=== PATIENT | male | born 1995 | race Caucasian/White ===

== ENCOUNTER 2019-05-18 18:13 | Emergency (ER) | payer OTHER, SELFPAY ==
[~2019-05-18] VITALS: Ht 170.2 cm; Wt 78.2 kg
[2019-05-18 20:34] LABS: CHLAMYDIA DNA AMPLIFICATION NEGATIVE (NEGATIVE); GC DNA AMPLIFICATION NEGATIVE (NEGATIVE)
[2019-05-18 21:49] VITALS: BP 135/90
[2019-05-20 07:17] LABS: HEPATITIS A ANTIBODY IGM NEGATIVE (NEGATIVE); HEPATITIS B CORE ANTIBODY IGM NEGATIVE (NEGATIVE); HEPATITIS B SURFACE ANTIGEN NEGATIVE (NEGATIVE)
== END 2019-05-18 22:14 | disposition home or self-care (01) ==
LOC: M ED 18:13
DX: Z20.2 Contact with and (suspected) exposure to infections with a predominantly sexual mode of transmission (principal); F17.220 Nicotine dependence, chewing tobacco, uncomplicated